=== PATIENT | male | born 1980 | race African-American/Black ===

== ENCOUNTER 2024-03-21 12:21 | Inpatient (IN) | payer OTHER ==
[2024-03-21 13:13] VITALS: BMI 29.5
[2024-03-21] MEDS ORDERED: ACETAMINOPHEN 325 MG TABLET (FP) PO PRN (15:38)
[2024-03-21] MEDS ORDERED: LOPERAMIDE HCL 2 MG CAPSULE PO PRN (15:38)
[2024-03-21] MEDS ORDERED: NICOTINE POLACRILEX 2 MG GUM BUC PRN (15:38)
[2024-03-21] MEDS ORDERED: P-EPHED 60MG/TRIPROLIDI 2.5MG TABLET PO PRN (15:38)
[2024-03-21] MEDS ORDERED: guaiFENesin 600 MG TABLET.ER (FP) PO PRN (15:38)
[2024-03-21] MEDS ORDERED: IBUPROFEN 600 MG TABLET (FP) PO PRN (15:38)
[2024-03-21] MEDS ORDERED: BISACODYL 5 MG TABLET.DR (FP) PO PRN (15:38)
[2024-03-21] MEDS ORDERED: BENZONATATE 200 MG CAPSULE PO PRN (15:38)
[2024-03-21] MEDS ORDERED: BENZOCAINE/MENTHOL (CHLORASEPTIC ) LOZENGE MM PRN (15:38)
[2024-03-21] MEDS ORDERED: POLYETHYLENE GLYCOL (HEALTHYLAX) 3350 17 GM PACKET PO PRN (15:38)
[2024-03-21] MEDS ORDERED: IBUPROFEN 400 MG TABLET (FP) PO PRN (15:38)
[2024-03-21] MEDS ORDERED: MAGNESIUM HYDROX 2400MG/30ML ORAL SUSPENSION 30 ML CUP PO PRN (15:38)
[2024-03-21] MEDS ORDERED: MAG HYDROX/AL HYDROX/SIMETH 30 ML UNIT-DOSE CUP PO PRN (15:38)
[2024-03-21] MEDS ORDERED: NICOTINE POLACRILEX 2 MG LOZENGE BC PRN (15:38)
[2024-03-21] MEDS ORDERED: HYDROCORTISONE 0.5% TOPICAL OINTMENT TUBE TP PRN (17:07)
[2024-03-21] MEDS ORDERED: TUBERCULIN PPD 5 TU/0.1ML VIAL ID ONE (19:05)
[2024-03-21] MEDS: TUBERCULIN PPD 5 TU/0.1ML SYRINGE (IN PATIENT USE ONLY) ID ONE (19:20)
[2024-03-21] MEDS: MELATONIN 5 MG TABLETS PO SCH (21:12)
[2024-03-21] MEDS: THIAMINE 100 MG TABLET PO SCH (21:12)
[2024-03-22] MEDS: NICOTINE 14 MG/24 HOURS TOPICAL PATCH TD SCH (10:01)
[2024-03-22] MEDS: PRENATAL VITAMINS W/ FOLIC ACID TABLET (FP) PO SCH (10:01)
[2024-03-22] MEDS: PNEUMOC 20-VAL CONJ-DIP CRM/PF 0.5 ML SYRINGE IM ONE (11:49)
[2024-03-22 14:32] LABS: PH,URINE 5.5 (5.0-8.0); URINE APPEARANCE CLEAR; URINE BILIRUBIN NEGATIVE (NEGATIVE); URINE COLOR YELLOW; URINE GLUCOSE (UA) NEGATIVE (NEGATIVE); URINE KETONE NEGATIVE (NEGATIVE); URINE LEUK ESTERASE NEGATIVE (NEGATIVE); URINE NITRITE NEGATIVE (NEGATIVE); URINE PROTEIN NEGATIVE (NEGATIVE); URINE UROBILINOGEN 0.2 mg/dL (0.2-1.0)
[2024-03-22 14:37] LABS: CHLORIDE 104 mmol/L (98-107); POTASSIUM 4.5 mmol/L (3.5-5.1); SODIUM 140 mmol/L (136-145)
[2024-03-22 14:40] LABS: ALBUMIN 3.6 g/dl (3.4-5.0); ANION GAP 5 mmol/L (4-13); CALCIUM 9.3 mg/dL (8.5-10.1); CO2 31 mmol/L (21-32); GLUCOSE,RANDOM 102 mg/dL (74-106)
[2024-03-22 14:43] LABS: CREATININE 0.8 mg/dL (0.55-1.3); SGOT/AST 18 U/L (15-37); SGPT/ALT 40 U/L (13-61)
[2024-03-22 14:45] LABS: BILIRUBIN,TOTAL 0.8 mg/dL (0.2-1); TOT PROT 6.7 g/dl (6.4-8.2)
[2024-03-22 14:46] LABS: ALK PHOS 80 U/L (45-117)
[2024-03-22 15:00] LABS: HEMATOCRIT 42.1 % (35.4-49); HEMOGLOBIN 14.3 GM/dL (11.7-16.9); MCH 29.8 pg (25.7-33.7); MEAN CELL VOLUME 87.7 fl (80-96); MEAN PLT VOLUME 7.9 fl (7.5-11.1); PLATELET COUNT 251 10^3/uL (134-434); RDW 15.4 % (11.9-15.9)
[2024-03-22 15:29] LABS: SYPHILIS W/ RPR CONF NON-REACTIVE (NONREACTIVE)
[2024-03-22] MEDS: hydrOXYzine PAMOATE 25 MG CAPSULE (FP) PO PRN (19:34)
[2024-03-22] MEDS: ATORVASTATIN CA 20 MG TABLET (FP) PO SCH (21:36)
[2024-03-22] MEDS: traZODone HCL 100 MG TABLET (FP) PO SCH (21:37)
[2024-03-22] MEDS: VALSARTAN 160 MG TABLET PO SCH (21:37)
[2024-03-24] MEDS: cloNIDine HCL 0.1 MG TABLET PO PRN (21:33)
[2024-03-29] MEDS: BACLOFEN 10 MG TABLET (FP) PO SCH (15:33)
[2024-03-29] MEDS: CLOTRIMAZOLE 1% 10 ML TOPICAL SOLUTION TP SCH (21:24)
[2024-03-29] MEDS: VALSARTAN 80 MG TABLET PO SCH (21:25)
[2024-03-29] MEDS: cloNIDine HCL 0.1 MG TABLET PO PRN (21:26)
[2024-03-29] MEDS ORDERED: CLOTRIMAZOLE 1%TOPICAL SOLUTION 30 ML BOTTLE TP SCH (22:00)
[2024-03-30 13:33] LABS: INR 0.96 (0.83-1.09); PROTHROMBIN TIME (PATIENT) 10.9 SEC (9.7-13.0)
[2024-03-31] MEDS ORDERED: NICOTINE 14 MG/24 HOURS TOPICAL PATCH TD PRN (10:55)
[2024-03-31] MEDS: LACTULOSE 20 GM/30 ML UDC (FOR ORAL USE ONLY) PO SCH (13:05)
[2024-04-03 06:43] VITALS: BP 109/74; PULSE 64; RESP 20; TEMP 98
== END 2024-04-03 09:55 | disposition home or self-care (01) | DRG 772 ==
LOC: YASAS 12:21 → Y3E 18:21
PROVIDERS: ADMIT Allergy & Immunology; ATTEND Psychiatry & Neurology Pain Medicine
PROC: HZ42ZZZ Group Counseling for Substance Abuse Treatment, Cognitive-Behavioral (ICD-10-PCS; principal; 2024-03-21)
DX: F10.20 Alcohol dependence, uncomplicated (principal); F14.20 Cocaine dependence, uncomplicated; F17.210 Nicotine dependence, cigarettes, uncomplicated; F19.282 Other psychoactive substance dependence with psychoactive substance-induced sleep disorder; F19.24 Other psychoactive substance dependence with psychoactive substance-induced mood disorder; E72.20 Disorder of urea cycle metabolism, unspecified; I10 Essential (primary) hypertension; M25.511 Pain in right shoulder; G89.29 Other chronic pain
CPT/HCPCS: 36415; 80053; 80305; 80307; 81003; 82140; 82652; 83735; 85027; 85610; 86780; 86803; 87811; 93005; 93010; J0475